=== PATIENT | male | born 1955 | race Caucasian/White ===

== ENCOUNTER 2017-12-09 12:04 | Day surgery (SDC) | payer BC ==
[2017-12-09] MEDS ORDERED: PROPOFOL 20 ML (13:31)
[2017-12-09] MEDS ORDERED: FENTAnyl 50 MCG/ML VIAL (13:31)
== END 2017-12-09 16:49 | disposition home or self-care (01) ==
LOC: GIL 12:04
DX: Z12.11 Encounter for screening for malignant neoplasm of colon (principal); K64.8 Other hemorrhoids; E78.5 Hyperlipidemia, unspecified; I10 Essential (primary) hypertension; D12.4 Benign neoplasm of descending colon
CPT/HCPCS: 45380; 88305